=== PATIENT | female | born 1995 | race Caucasian/White ===

== ENCOUNTER 2017-09-12 08:54 | Emergency (ER) | payer OTHER ==
[~2017-09-12] VITALS: Ht 162.6 cm; Wt 93.0 kg
[2017-09-12 08:57] VITALS: BP 134/82
[2017-09-12] MEDS ORDERED: PREN1TAB47 PO (09:17)
== END 2017-09-12 11:23 | disposition home or self-care (01) ==
LOC: ED 10:14
DX: O03.9 Complete or unspecified spontaneous abortion without complication (principal)
CPT/HCPCS: 36415; 76801; 84702; 86901

== ENCOUNTER 2018-05-15 17:14 | Outpatient (CLI) | payer OTHER ==
[~2018-05-15] VITALS: Ht 162.6 cm; Wt 90.9 kg
[~2018-05-15 17:14] MED LIST: PREN1TAB47 PO
[2018-05-15 17:26] VITALS: BP 132/76
== END 2018-05-15 19:00 | disposition home or self-care (01) ==
LOC: LDOP 17:14
PROVIDERS: ATTEND Obstetrics & Gynecology
DX: O26.53 Maternal hypotension syndrome, third trimester (principal); Z3A.33 33 weeks gestation of pregnancy
CPT/HCPCS: 36415; 59025; 81003; 82731; 99211; G0463

== ENCOUNTER 2018-06-02 19:16 | Emergency (ER) | payer OTHER, MEDICAID ==
[~2018-06-02] VITALS: Ht 160 cm; Wt 92.7 kg
[2018-06-02 19:20] VITALS: BP 110/77
[2018-06-02] MEDS ORDERED: BACITRACIN ZINC OINT 500U/GM, 0.9 GM ONE (19:47)
[2018-06-02] MEDS ORDERED: DIPH,PERTUSS(ACELL),TET VAC/PF 0.5 ML IM-VACC ONE (19:47)
[2018-06-02] MEDS: DIPH,PERTUSS(ACELL),TET VAC/PF 0.5 ML IM-VACC ONE ×2 (19:48→19:54)
== END 2018-06-02 20:56 | disposition home or self-care (01) ==
LOC: ED 19:39
DX: S60.572A Other superficial bite of hand of left hand, initial encounter (principal); W54.0XXA Bitten by dog, initial encounter; Y93.89 Activity, other specified; Y92.009 Unspecified place in unspecified non-institutional (private) residence as the place of occurrence of the external cause; Y99.8 Other external cause status
CPT/HCPCS: 99284

== ENCOUNTER 2018-06-27 06:01 | Inpatient (IN) | payer OTHER, MEDICAID ==
[~2018-06-27] VITALS: Ht 160 cm; Wt 91.4 kg
[2018-06-27] MEDS ORDERED: OXYTOCIN 30U/ 0.9% NaCL 500ML 500 ML IV PRN (06:08)
[2018-06-27] MEDS ORDERED: OXYTOCIN 30U/ 0.9% NaCL 500ML 500 ML IV ONE (06:08)
[2018-06-27] MEDS ORDERED: D5%-LACTATED RINGERS 1,000 ML IV SCH (06:08)
[2018-06-27] MEDS ORDERED: LACTATED RINGERS 1,000 ML IV SCH (06:08)
[2018-06-27] MEDS ORDERED: NEWBORN KIT ONE (06:14)
[2018-06-27] MEDS ORDERED: OXYTOCIN 30U/ 0.9% NaCL 500ML 500 ML ONE (06:14)
[2018-06-27] MEDS ORDERED: MISOPROSTOL 200 MCG TABLET ONE ×2 (06:15→19:12)
[2018-06-27] MEDS ORDERED: TERBUTALINE 1 MG/ML, 1ML IVPush PRN (06:30)
[2018-06-27] MEDS ORDERED: FENTANYL PF 100 MCG/2ML IVPush PRN (06:30)
[2018-06-27] MEDS ORDERED: FENTANYL PF 100 MCG/2ML IV PRN (06:30)
[2018-06-27] MEDS ORDERED: ALUMINUM/MAG/SIMETHICONE 30 ML UDC PO PRN (06:30)
[2018-06-27 06:50] LABS: MEAN CORPUSCULAR HEMOGLOBIN 26.3 pg (27.0-34.8); MEAN CORPUSCULAR HGB CONC 32.7 g/dL (32.4-35.8); MEAN CORPUSCULAR VOLUME 80.6 fL (80-100); MEAN PLATELET VOLUME 11.3 fL (7.4-10.4); PLATELET COUNT 126 x10^3/uL (130-400); RED BLOOD COUNT 3.96 x10^6/uL (3.82-5.3); RED CELL DISTRIBUTION WIDTH 15.7 % (9.6-15.2)
[2018-06-27 07:00] VITALS: BP 118/71
[2018-06-27 07:08] LABS: BASOPHILS # (AUTO) 0.02 x10^3/uL (0-0.1); BASOPHILS % (AUTO) 0 % (0-1); EOSINOPHILS # (AUTO) 0.04 x10^3/uL (0-0.4); EOSINOPHILS % (AUTO) 1 % (1-7); LYMPHOCYTES # (AUTO) 1.16 x10^3/uL (1-3.4); LYMPHOCYTES % (AUTO) 20 % (22-44); MD NO; MONOCYTES # (AUTO) 0.42 x10^3/uL (0.2-0.8); MONOCYTES % (AUTO) 7 % (2-9); NEUTROPHILS % (AUTO) 72 % (42-75)
[2018-06-27] MEDS ORDERED: MISOPROSTOL 25 MCG TABLET ONE ×2 (07:15→12:32)
[2018-06-27] MEDS ORDERED: MISOPROSTOL 25 MCG TABLET VG PRN (07:30)
[2018-06-27] MEDS ORDERED: FENTANYL/BUPIV./NS/PF 250 ML EPIDCONT SCH (08:44)
[2018-06-27] MEDS: LACTATED RINGERS 1,000 ML IV SCH ×2 (08:44→16:44)
[2018-06-27] MEDS ORDERED: NALOXONE 0.4 MG/ML, 1ML IVPush PRN (09:00)
[2018-06-27] MEDS ORDERED: LACTATED RINGERS 1,000 ML IVBOLUS PRN (09:00)
[2018-06-27] MEDS ORDERED: EPHEDRINE 50 MG/ML, 1ML IVPush PRN (09:00)
[2018-06-27 19:35] VITALS: BP 112/67
[2018-06-28] MEDS ORDERED: METOCLOPRAMIDE 5 MG/ML, 2ML ONE (00:03)
[2018-06-28] MEDS ORDERED: FENTANYL PF 100 MCG/2ML ONE (00:14)
[2018-06-28] MEDS ORDERED: METOCLOPRAMIDE 5 MG/ML, 2ML IVPush PRN (00:30)
[2018-06-28] MEDS: LACTATED RINGERS 1,000 ML IV SCH ×2 (00:44→08:44)
[2018-06-28] MEDS: OXYTOCIN 30U/ 0.9% NaCL 500ML 500 ML IV SCH ×2 (01:11→11:11)
[2018-06-28] MEDS ORDERED: IBUPROFEN 600 MG TABLET PO PRN (01:30)
[2018-06-28] MEDS ORDERED: HYDROcodone/APAP 5/325 TABLET PO PRN ×2 (01:30)
[2018-06-28] MEDS ORDERED: ONDANSETRON 2MG/ML, 2ML IV PRN (01:30)
[2018-06-28] MEDS ORDERED: METHYLERGONOVINE 0.2 MG/ML IM PRN (01:30)
[2018-06-28] MEDS ORDERED: CARBOPROST TROMETHAMINE 250 MCG/ML, 1ML IM PRN (01:30)
[2018-06-28] MEDS ORDERED: DOCUSATE 100 MG CAPSULE PO PRN (01:30)
[2018-06-28] MEDS ORDERED: ACETAMINOPHEN 325 MG TABLET PO PRN (01:30)
[2018-06-28] MEDS ORDERED: MISOPROSTOL 200 MCG TABLET PR PRN (01:30)
[2018-06-28] MEDS ORDERED: OXYTOCIN 30U/ 0.9% NaCL 500ML 500 ML ONE (02:40)
[2018-06-28 03:10] VITALS: BP 112/70
[2018-06-28 07:20] VITALS: BP 113/73
[2018-06-28 08:14] LABS: BASOPHILS # (AUTO) 0.03 x10^3/uL (0-0.1); BASOPHILS % (AUTO) 0 % (0-1); EOSINOPHILS % (AUTO) 0 % (1-7); LYMPHOCYTES # (AUTO) 1.11 x10^3/uL (1-3.4); LYMPHOCYTES % (AUTO) 11 % (22-44); MD NO; MEAN CORPUSCULAR HEMOGLOBIN 26.5 pg (27.0-34.8); MEAN CORPUSCULAR HGB CONC 33.1 g/dL (32.4-35.8); MEAN PLATELET VOLUME 11.2 fL (7.4-10.4); MONOCYTES # (AUTO) 0.57 x10^3/uL (0.2-0.8); MONOCYTES % (AUTO) 6 % (2-9); NEUTROPHILS # (AUTO) 8.18 x10^3/uL (1.8-6.8); NEUTROPHILS % (AUTO) 83 % (42-75); PLATELET COUNT 130 x10^3/uL (130-400); RED BLOOD COUNT 3.88 x10^6/uL (3.82-5.3); RED CELL DISTRIBUTION WIDTH 15.3 % (9.6-15.2)
[2018-06-28] MEDS: PRENATAL VIT/IRON/FA 1 EACH TABLET PO SCH (09:35)
[2018-06-28 12:15] VITALS: BP 128/76
[2018-06-28 16:33] VITALS: BP 117/81
[2018-06-28 20:00] VITALS: BP 113/76
[2018-06-29 00:20] VITALS: BP 102/69
[2018-06-29 08:00] VITALS: BP 119/81
[2018-06-29] MEDS ORDERED: HYDR-3240 PO (08:14)
[2018-06-29] MEDS ORDERED: SENN-92 PO (08:15)
[2018-06-29] MEDS ORDERED: IBUP-1222 PO (08:15)
[2018-06-29] MEDS: PRENATAL VIT/IRON/FA 1 EACH TABLET PO SCH (09:23)
== END 2018-06-29 12:30 | disposition home or self-care (01) | DRG 775 ==
LOC: LDIP 06:01 → 2NW 06-28 02:55
PROVIDERS: ADMIT Obstetrics & Gynecology; ATTEND Obstetrics & Gynecology
PROC: 10E0XZZ Delivery of Products of Conception, External Approach (ICD-10-PCS; principal; 2018-06-28)
PROC: 0HQ9XZZ Repair Perineum Skin, External Approach (ICD-10-PCS; 2018-06-28)
PROC: 10907ZC Drainage of Amniotic Fluid, Therapeutic from Products of Conception, Via Natural or Artificial Opening (ICD-10-PCS; 2018-06-28)
PROC: 3E0P7VZ Introduction of Hormone into Female Reproductive, Via Natural or Artificial Opening (ICD-10-PCS; 2018-06-28)
PROC: 10H07YZ Insertion of Other Device into Products of Conception, Via Natural or Artificial Opening (ICD-10-PCS; 2018-06-28)
DX: O66.0 Obstructed labor due to shoulder dystocia (principal); O70.0 First degree perineal laceration during delivery; Z37.0 Single live birth; Z3A.39 39 weeks gestation of pregnancy
CPT/HCPCS: 36415; 85025; 86850; 86900; G0378; J3010; J2590; J2765; J7120